=== PATIENT | male | born 1995 | race Caucasian/White ===

== ENCOUNTER 2016-11-01 19:44 | Emergency (ER) | payer OTHER ==
[2016-11-01] MEDS ORDERED: diphenhydrAMINE 25 MG CAP As Ordered ONE (20:52)
[2016-11-01] MEDS ORDERED: methylPREDNISolone INJ 125 MG/2 ML VIAL (J2930) As Ordered ONE (20:53)
--- NOTE | 2016-11-01 21:38 | EDDOCDS ---
Physician Documentation [facility] Name: Tereso Christianson Age: 21 yrs Sex: Male : 1995 Arrival Date: 11/01/2016 Time: 19:44 Bed TR7 Private MD: NO PRIMARY PHYSICIAN, . Disposition: 11/01/16 21:17 Discharged to Home/Self Care. Impression: Acute pharyngitis, unspecified, Cough. - Condition is Stable. - Discharge Instructions: Pharyngitis, Cough, Adult, [id number]. - Medication Reconciliation, Local Pharmacy Hours form. - [facility]; When: Call to arrange an appointment; Reason: Further diagnostic work-up, Recheck today's complaints, Continuance of care. - Problem is new. - Symptoms are resolved. Historical: - Allergies: no known allergies; - Home Meds: 1. none - PMHx: none; - PSHx: none; - Social history: Smoking status: Patient states was never smoker of tobacco. No barriers to communication noted. - Family history: Not pertinent. - : The pt / caregiver states he / she is not on anticoagulants. Home medication list is obtained from the patient. - Exposure Risk Screening:: None identified. Vital Signs: 11/01 19:45 BP 135 / 96; Pulse 88; Resp 20 S; Temp 97.1(O); Pulse Ox 100% on R/A; Weight 74.84 kg / gr2 164.99 lbs (R); Height 5 ft. 10 in. (177.80 cm) (R); Pain 4/10; 21:20 BP 130 / 78; Pulse 80; Resp 20; Temp 97.1(O); Pulse Ox 100% on R/A; Pain 4/10; ar3 19:45 Body Mass Index 23.67 (74.84 kg, 177.80 cm) gr2 MDM: 20:36 Obtain sample by nasopharyngeal swab ordered. btw 20:36 Strep Screen, Nursing ordered. btw 20:36 diphenhydrAMINE 50 mg PO once ordered. btw 20:37 -Influenza A&B Rapid Antigen - Nose Ordered. EDMS 20:39 methylPREDNISolone Sodium Succinate 125 mg IM once ordered. btw 20:48 GATS (NEGATIVE STREP SCREEN) Ordered. EDMS 21:12 -Influenza A&B Rapid Antigen - Nose Reviewed. btw 21:35 [facility] Payment Agreement was scanned into [employer] and attached to record. yoni 21:36 Financial registration complete. gjbethel Administered Medications: 20:39 CANCELLED (Other Intervention Used): Solu-MEDROL 125 mg IVP once btw 21:05 Drug: diphenhydrAMINE 50 mg [diphenhydramine 25 mg capsule (2 caps)] Route: PO; [facility] 21:05 Drug: methylPREDNISolone Sodium Succinate 125 mg Route: IM; Site: right gluteus; [facility] Signatures: Dispatcher [employer] EDIsaac Marrufo PA PA btw Malika Rascon RN RN [facility] Mimi Terrazas The chart was reviewed and I authenticate all verbal orders and agree with the evaluation and treatment provided.Corrections: (The following items were deleted from the chart) 20:39 20:36 Solu-MEDROL 125 mg IVP once ordered. btw btw Attachments: 21:35 [facility] Payment Agreement [facility] MTDD
--- NOTE | 2016-11-01 21:38 | EDDOCDS ---
Nurse's Notes [facility] Name: Tereso Christianson Age: 21 yrs Sex: Male : 1995 Arrival Date: 11/01/2016 Time: 19:44 Bed TR7 Private MD: NO PRIMARY PHYSICIAN, . Diagnosis: Acute pharyngitis, unspecified;Cough Presentation: 11/01 19:53 Presenting complaint: Patient states: throat swelled up bad about 15 minutes ago, was [facility] eating when this happened, mom thinks he got a piece of hamburger caught in throat. Adult Sepsis Screening: The patient does not have new or worsening altered mentation. Systolic blood pressure is greater than 100. Patient has a qSOFA score of 0- Negative Sepsis Screen. Adult Sepsis Screening: Patient has a respiratory rate of greater than or equal to 22 (1 point). Suicide/Homicide risk assessment- the patient denies having any suicidal and/or homicidal ideations and does not present with any other emotional, behavioral or mental health complaints. Status: Patient is not a utility service worker or dependent. Transition of care: patient was not received from another setting of care. 19:53 Acuity: ALISHA Level 3 [facility] 19:53 Method Of Arrival: Walkin/Carried/Asstd [facility] Triage Assessment: 19:57 General: Appears uncomfortable, Behavior is anxious, cooperative. Pain: Location: neck [facility] Pain currently is 6 out of 10 on a pain scale. HIV screening NA for this visit Offered previously. Respiratory: Onset: The symptoms/episode began/occurred suddenly, Breath sounds are clear bilaterally. Derm: Skin is pink, warm & dry. Historical: - Allergies: no known allergies; - Home Meds: 1. none - PMHx: none; - PSHx: none; - Social history: Smoking status: Patient states was never smoker of tobacco. No barriers to communication noted. - Family history: Not pertinent. - : The pt / caregiver states he / she is not on anticoagulants. Home medication list is obtained from the patient. - Exposure Risk Screening:: None identified. Screenin:33 Screening information is obtained from the patient. Fall risk: No risks identified. [facility] Assistance ADL's: requires no assistance with activities of daily living. Abuse/DV Screen: The patient / caregiver reports he/she is: not in a situation that causes fear, pain or injury. Nutritional screening: No deficits noted. Advance Directives: There is no active DNR order. home support is adequate. Assessment: 21:33 General: Appears in no apparent distress, comfortable, Behavior is appropriate for age, [facility] cooperative, states throat feels much better since injections, reviewed discharge instructions with patient and mother who deny further needs and decline offer of additional assistance. Pain: Location: neck Pain currently is 2 out of 10 on a pain scale. Cardiovascular: Chest pain is denied. Respiratory: Airway is patent Respiratory effort is even, unlabored, Respiratory pattern is regular, symmetrical. Derm: Skin is pink, warm & dry. Vital Signs: 19:45 BP 135 / 96; Pulse 88; Resp 20 S; Temp 97.1(O); Pulse Ox 100% on R/A; Weight 74.84 kg gr2 (R); Height 5 ft. 10 in. (177.80 cm) (R); Pain 4/10; 21:20 BP 130 / 78; Pulse 80; Resp 20; Temp 97.1(O); Pulse Ox 100% on R/A; Pain 4/10; ar3 19:45 Body Mass Index 23.67 (74.84 kg, 177.80 cm) gr2 Vitals: 19:45 Log In Time: November 01, 2016 at 19:45. gr2 ED Course: 19:45 Patient visited by Greta Anders. gr2 19:45 NO PRIMARY PHYSICIAN, . is Private Physician. gr2 19:45 Patient moved to Waiting gr2 19:51 Patient visited by Greta Anders. gr2 19:51 Patient moved to Pre RCE gr2 19:56 Triage Initiated cjh 20:15 Malika Rascon,RN is Primary Nurse. ar3 20:15 Patient moved to Triage 1 ar3 20:24 Isaac Howard PA is PHCP. btw 20:25 Abdoulaye Cunha DO is Attending Physician. btw 20:25 Patient visited by Isaac Howard PA. btw 20:38 -Influenza A&B Rapid Antigen - Nose Sent. ar3 20:51 GATS (NEGATIVE STREP SCREEN) Sent. [facility] 21:16 [facility] is Referral Physician. btw 21:22 Patient visited by Bhargavi Judd PCA. ar3 21:32 Patient moved to TR7 ar3 21:33 The patient / caregiver is instructed regarding the plan of care and ED course. [facility] 21:33 No IV's were initiated during this patient's visit. No procedures done that require [facility] assistance. 21:35 [facility] Payment Agreement was scanned into [employer] and attached to record. gjb Administered Medications: 20:39 CANCELLED (Other Intervention Used): Solu-MEDROL 125 mg IVP once btw 21:05 Drug: diphenhydrAMINE 50 mg [diphenhydramine 25 mg capsule (2 caps)] Route: PO; [facility] 21:05 Drug: methylPREDNISolone Sodium Succinate 125 mg Route: IM; Site: right gluteus; [facility] Order Results: Lab Order: -Influenza A&B Rapid Antigen - Nose; SPEC'M 11/01/16 20:38 Test: INFLUENZA A RAPID SCR by ICA; Value: INFLUENZA A RESULTS NEGATIVE; Status: F Test: INFLUENZA A RAPID SCR by ICA; Value: Comments:; Status: F Test: INFLUENZA B RAPID SCR by ICA; Value: INFLUENZA B RESULTS NEGATIVE; Status: F Test Note: ; The Influenza test is a direct rapid immunoassay for the qualitative detection of Influenza viral antigen. Cell culture (Viral Culture) testing should be considered to confirm NEGATIVE results and to assist in detecting other viruses that can provide similar clinical symptoms. Please contact the lab within 24 hours ([phone]) if confirmatory testing is desired. Outcome: 21:17 Discharge ordered by Provider. btw 21:33 Discharge Assessment: Patient awake, alert and oriented x 3. No cognitive and/or [facility] functional deficits noted. Patient verbalized understanding of disposition instructions. patient administered narcotics - no. The following High Risk Discharge criteria are identified: None. Discharged to home ambulatory, with parent. Condition: good Condition: stable Condition: improved. Discharge instructions given to patient, parents Instructed on discharge instructions, follow up and referral plans. Demonstrated understanding of instructions, medications, Pt was receptive of discharge instructions/ teaching. No special radiology studies were completed. Property :Personal belongings accompany Pt. 21:37 Patient left the ED. [facility] Signatures: Bhargavi Judd, BRAXTON ASSEMBLY MANAGER ar3 Isaac Howard PA PA btw Malika Rascon RN RN [facility] Greta Anders gr2 Terrazas, Mimi gjb MTDD
--- NOTE | 2016-11-03 22:38 | EDDOCDS ---
Physician Documentation [facility] Name: Tereso Christianson Age: 21 yrs Sex: Male : 1995 Arrival Date: 11/01/2016 Time: 19:44 Bed TR7 Private MD: NO PRIMARY PHYSICIAN, . Disposition: 11/01/16 21:17 Discharged to Home/Self Care. Impression: Acute pharyngitis, unspecified, Cough. - Condition is Stable. - Discharge Instructions: Pharyngitis, Cough, Adult, [id number]. - Medication Reconciliation, Local Pharmacy Hours form. - Follow up: [facility]; When: Call to arrange an appointment; Reason: Further diagnostic work-up, Recheck today's complaints, Continuance of care. - Problem is new. - Symptoms are resolved. Historical: - Allergies: no known allergies; - Home Meds: 1. none - PMHx: none; - PSHx: none; - Social history: Smoking status: Patient states was never smoker of tobacco. No barriers to communication noted. - Family history: Not pertinent. - : The pt / caregiver states he / she is not on anticoagulants. Home medication list is obtained from the patient. - Exposure Risk Screening:: None identified. Vital Signs: 11/01 19:45 BP 135 / 96; Pulse 88; Resp 20 S; Temp 97.1(O); Pulse Ox 100% on R/A; Weight 74.84 kg / gr2 164.99 lbs (R); Height 5 ft. 10 in. (177.80 cm) (R); Pain 4/10; 21:20 BP 130 / 78; Pulse 80; Resp 20; Temp 97.1(O); Pulse Ox 100% on R/A; Pain 4/10; ar3 19:45 Body Mass Index 23.67 (74.84 kg, 177.80 cm) gr2 MDM: 20:36 Obtain sample by nasopharyngeal swab ordered. btw 20:36 Strep Screen, Nursing ordered. btw 20:36 diphenhydrAMINE 50 mg PO once ordered. btw 20:37 -Influenza A&B Rapid Antigen - Nose Ordered. EDMS 20:39 methylPREDNISolone Sodium Succinate 125 mg IM once ordered. btw 20:48 GATS (NEGATIVE STREP SCREEN) Ordered. EDMS 21:12 -Influenza A&B Rapid Antigen - Nose Reviewed. btw 21:35 [facility] Payment Agreement was scanned into [employer] and attached to record. [facility] 21:36 Financial registration complete. [facility] 11/02 09:31 T-Sheet-- Draft Copy was scanned into [employer] and attached to record. gb Administered Medications: 11/01 20:39 CANCELLED (Other Intervention Used): Solu-MEDROL 125 mg IVP once btw 21:05 Drug: diphenhydrAMINE 50 mg [diphenhydramine 25 mg capsule (2 caps)] Route: PO; [facility] 21:05 Drug: methylPREDNISolone Sodium Succinate 125 mg Route: IM; Site: right gluteus; [facility] Signatures: Dispatcher [employer] EDAdina Wilkinson, Isaac Alexander PA PA btw Malika RasconRN RN [facility] Mimi Terrazas The chart was reviewed and I authenticate all verbal orders and agree with the evaluation and treatment provided.Corrections: (The following items were deleted from the chart) 20:39 20:36 Solu-MEDROL 125 mg IVP once ordered. btw w Attachments: 21:35 [facility] Payment Agreement [facility] 11/02 09:31 T-Sheet-- Draft Copy Chart Complete MTDD
--- NOTE | 2016-11-03 22:38 | EDDOCDS ---
Nurse's Notes [facility] Name: Tereso Christianson Age: 21 yrs Sex: Male : 1995 Arrival Date: 11/01/2016 Time: 19:44 Bed TR7 Private MD: NO PRIMARY PHYSICIAN, . Diagnosis: Acute pharyngitis, unspecified;Cough Presentation: 11/01 19:53 Presenting complaint: Patient states: throat swelled up bad about 15 minutes ago, was [facility] eating when this happened, mom thinks he got a piece of hamburger caught in throat. Adult Sepsis Screening: The patient does not have new or worsening altered mentation. Systolic blood pressure is greater than 100. Patient has a qSOFA score of 0- Negative Sepsis Screen. Adult Sepsis Screening: Patient has a respiratory rate of greater than or equal to 22 (1 point). Suicide/Homicide risk assessment- the patient denies having any suicidal and/or homicidal ideations and does not present with any other emotional, behavioral or mental health complaints. Status: Patient is not a expediter service order or dependent. Transition of care: patient was not received from another setting of care. 19:53 Acuity: ALISHA Level 3 [facility] 19:53 Method Of Arrival: Walkin/Carried/Asstd [facility] Triage Assessment: 19:57 General: Appears uncomfortable, Behavior is anxious, cooperative. Pain: Location: neck [facility] Pain currently is 6 out of 10 on a pain scale. HIV screening NA for this visit Offered previously. Respiratory: Onset: The symptoms/episode began/occurred suddenly, Breath sounds are clear bilaterally. Derm: Skin is pink, warm & dry. Historical: - Allergies: no known allergies; - Home Meds: 1. none - PMHx: none; - PSHx: none; - Social history: Smoking status: Patient states was never smoker of tobacco. No barriers to communication noted. - Family history: Not pertinent. - : The pt / caregiver states he / she is not on anticoagulants. Home medication list is obtained from the patient. - Exposure Risk Screening:: None identified. Screenin:33 Screening information is obtained from the patient. Fall risk: No risks identified. [facility] Assistance ADL's: requires no assistance with activities of daily living. Abuse/DV Screen: The patient / caregiver reports he/she is: not in a situation that causes fear, pain or injury. Nutritional screening: No deficits noted. Advance Directives: There is no active DNR order. home support is adequate. Assessment: 21:33 General: Appears in no apparent distress, comfortable, Behavior is appropriate for age, [facility] cooperative, states throat feels much better since injections, reviewed discharge instructions with patient and mother who deny further needs and decline offer of additional assistance. Pain: Location: neck Pain currently is 2 out of 10 on a pain scale. Cardiovascular: Chest pain is denied. Respiratory: Airway is patent Respiratory effort is even, unlabored, Respiratory pattern is regular, symmetrical. Derm: Skin is pink, warm & dry. Vital Signs: 19:45 BP 135 / 96; Pulse 88; Resp 20 S; Temp 97.1(O); Pulse Ox 100% on R/A; Weight 74.84 kg gr2 (R); Height 5 ft. 10 in. (177.80 cm) (R); Pain 4/10; 21:20 BP 130 / 78; Pulse 80; Resp 20; Temp 97.1(O); Pulse Ox 100% on R/A; Pain 4/10; ar3 19:45 Body Mass Index 23.67 (74.84 kg, 177.80 cm) gr2 Vitals: 19:45 Log In Time: November 01, 2016 at 19:45. gr2 ED Course: 19:45 Patient visited by Greta Anders. gr2 19:45 NO PRIMARY PHYSICIAN, . is Private Physician. gr2 19:45 Patient moved to Waiting gr2 19:51 Patient visited by Greta Anders. gr2 19:51 Patient moved to Pre RCE gr2 19:56 Triage Initiated cjh 20:15 Malika Rascon,RN is Primary Nurse. ar3 20:15 Patient moved to Triage 1 ar3 20:24 Isaac Howard PA is PHCP. btw 20:25 Abdoulaye Cunha DO is Attending Physician. btw 20:25 Patient visited by Isaac Howard PA. btw 20:38 -Influenza A&B Rapid Antigen - Nose Sent. ar3 20:51 GATS (NEGATIVE STREP SCREEN) Sent. [facility] 21:16 [facility] is Referral Physician. btw 21:22 Patient visited by Bhargavi Judd PCA. ar3 21:32 Patient moved to TR7 ar3 21:33 The patient / caregiver is instructed regarding the plan of care and ED course. [facility] 21:33 No IV's were initiated during this patient's visit. No procedures done that require [facility] assistance. 21:35 [facility] Payment Agreement was scanned into [employer] and attached to record. gjb 11/02 09:31 T-Sheet-- Draft Copy was scanned into [employer] and attached to record. gb Administered Medications: 11/01 20:39 CANCELLED (Other Intervention Used): Solu-MEDROL 125 mg IVP once btw 21:05 Drug: diphenhydrAMINE 50 mg [diphenhydramine 25 mg capsule (2 caps)] Route: PO; [facility] 21:05 Drug: methylPREDNISolone Sodium Succinate 125 mg Route: IM; Site: right gluteus; [facility] Order Results: Lab Order: -Influenza A&B Rapid Antigen - Nose; SPEC'M 11/01/16 20:38 Test: INFLUENZA A RAPID SCR by ICA; Value: INFLUENZA A RESULTS NEGATIVE; Status: F Test: INFLUENZA A RAPID SCR by ICA; Value: Comments:; Status: F Test: INFLUENZA B RAPID SCR by ICA; Value: INFLUENZA B RESULTS NEGATIVE; Status: F Test Note: ; The Influenza test is a direct rapid immunoassay for the qualitative detection of Influenza viral antigen. Cell culture (Viral Culture) testing should be considered to confirm NEGATIVE results and to assist in detecting other viruses that can provide similar clinical symptoms. Please contact the lab within 24 hours ([phone]) if confirmatory testing is desired. Lab Order: GATS (NEGATIVE STREP SCREEN); SPEC'M 11/01/16 20:38 Test: GATS CULTURE (NEG STREP SCR); Value: GATS RESULT NEGATIVE FOR STREP PYOGENES (GROUP A); Status: F Test: GATS CULTURE (NEG STREP SCR); Value: <EXTERNAL COMMENT eCWMed> FULL REPORT IN LAB NOTES (eCW and Medent).; Status: F Outcome: 21:17 Discharge ordered by Provider. btw 21:33 Discharge Assessment: Patient awake, alert and oriented x 3. No cognitive and/or [facility] functional deficits noted. Patient verbalized understanding of disposition instructions. patient administered narcotics - no. The following High Risk Discharge criteria are identified: None. Discharged to home ambulatory, with parent. Condition: good Condition: stable Condition: improved. Discharge instructions given to patient, parents Instructed on discharge instructions, follow up and referral plans. Demonstrated understanding of instructions, medications, Pt was receptive of discharge instructions/ teaching. No special radiology studies were completed. Property :Personal belongings accompany Pt. 21:37 Patient left the ED. [facility] Signatures: Adina Blue, Reg Reg gb Dutch, Bhargavi, CEMENTING BULK MATERIAL OPERATOR CEMENTING BULK MATERIAL OPERATOR ar3 Isaac Howard PA PA btw Hafner, Jane, RN RN [facility] Greta Anders gr2 Mimi Terrazas Chart Complete MTDD
--- NOTE | 2016-11-03 22:39 | EDDOCDS ---
Physician Documentation [facility] Name: Tereso Christianson Age: 21 yrs Sex: Male : 1995 Arrival Date: 11/01/2016 Time: 19:44 Bed TR7 Private MD: NO PRIMARY PHYSICIAN, . Disposition: 11/01/16 21:17 Discharged to Home/Self Care. Impression: Acute pharyngitis, unspecified, Cough. - Condition is Stable. - Discharge Instructions: Pharyngitis, Cough, Adult, [id number]. - Medication Reconciliation, Local Pharmacy Hours form. - Follow up: [facility]; When: Call to arrange an appointment; Reason: Further diagnostic work-up, Recheck today's complaints, Continuance of care. - Problem is new. - Symptoms are resolved. Historical: - Allergies: no known allergies; - Home Meds: 1. none - PMHx: none; - PSHx: none; - Social history: Smoking status: Patient states was never smoker of tobacco. No barriers to communication noted. - Family history: Not pertinent. - : The pt / caregiver states he / she is not on anticoagulants. Home medication list is obtained from the patient. - Exposure Risk Screening:: None identified. Vital Signs: 11/01 19:45 BP 135 / 96; Pulse 88; Resp 20 S; Temp 97.1(O); Pulse Ox 100% on R/A; Weight 74.84 kg / gr2 164.99 lbs (R); Height 5 ft. 10 in. (177.80 cm) (R); Pain 4/10; 21:20 BP 130 / 78; Pulse 80; Resp 20; Temp 97.1(O); Pulse Ox 100% on R/A; Pain 4/10; ar3 19:45 Body Mass Index 23.67 (74.84 kg, 177.80 cm) gr2 MDM: 20:36 Obtain sample by nasopharyngeal swab ordered. btw 20:36 Strep Screen, Nursing ordered. btw 20:36 diphenhydrAMINE 50 mg PO once ordered. btw 20:37 -Influenza A&B Rapid Antigen - Nose Ordered. EDMS 20:39 methylPREDNISolone Sodium Succinate 125 mg IM once ordered. btw 20:48 GATS (NEGATIVE STREP SCREEN) Ordered. EDMS 21:12 -Influenza A&B Rapid Antigen - Nose Reviewed. btw 21:35 [facility] Payment Agreement was scanned into [employer] and attached to record. [facility] 21:36 Financial registration complete. [facility] 11/02 09:31 T-Sheet-- Draft Copy was scanned into [employer] and attached to record. gb Administered Medications: 11/01 20:39 CANCELLED (Other Intervention Used): Solu-MEDROL 125 mg IVP once btw 21:05 Drug: diphenhydrAMINE 50 mg [diphenhydramine 25 mg capsule (2 caps)] Route: PO; [facility] 21:05 Drug: methylPREDNISolone Sodium Succinate 125 mg Route: IM; Site: right gluteus; [facility] Signatures: Dispatcher [employer] EDAdina Wilkinson, Isaac Alexander PA PA btw Malika RasconRN RN [facility] Mimi Terrazas The chart was reviewed and I authenticate all verbal orders and agree with the evaluation and treatment provided.Corrections: (The following items were deleted from the chart) 20:39 20:36 Solu-MEDROL 125 mg IVP once ordered. btw w Attachments: 21:35 [facility] Payment Agreement [facility] 11/02 09:31 T-Sheet-- Draft Copy Chart Complete MTDD
== END 2016-11-01 21:37 | disposition home or self-care (01) ==
LOC: M ED 19:44
DX: J02.9 Acute pharyngitis, unspecified (principal); R05 Cough; F17.210 Nicotine dependence, cigarettes, uncomplicated
CPT/HCPCS: 87804; 96372; 99283; J2930

== ENCOUNTER 2017-11-14 13:47 | Emergency (ER) | payer OTHER ==
[2017-11-14 17:16] LABS: BASO # 0.1 10^3/uL (0.0-0.2); BASO % 0.5 % (0.0-1.0); EOS # 0.2 10^3/uL (0.0-0.50); EOS % 1.5 % (0.0-3.0); HEMATOCRIT 43.3 % (42.0-52.0); HEMOGLOBIN 15.2 g/dl (14.0-18.0); IMMATURE GRANULOCYTE % 0.7 % (0-3.0); LYMPH # 3.6 10^3/uL (1.5-6.5); LYMPH % 28.7 % (24.0-44.0); MEAN CORPUSCULAR HEMOGLOBIN 31.3 pg (27.0-33.0); MEAN CORPUSCULAR HGB CONC 35.1 g/dl (32.0-36.5); MEAN CORPUSCULAR VOLUME 89.1 fl (80.0-96.0); MONO # 1.1 10^3/uL (0.0-0.8); MONO % 8.9 % (0.0-5.0); NEUTROPHILS # 7.5 10^3/uL (1.8-7.7); NEUTROPHILS % 59.7 % (36.0-66.0); PLATELET COUNT, AUTOMATED 269 10^3/uL (150-450); RED BLOOD COUNT 4.86 10^6/uL (4.30-6.10); RED CELL DISTRIBUTION WIDTH 12.2 % (11.5-14.5); WHITE BLOOD COUNT 12.6 10^3/uL (4.0-10.0)
[2017-11-14 17:31] LABS: ALBUMIN 4.2 GM/DL (3.2-5.2); ALBUMIN/GLOBULIN RATIO 1.11 (1.00-1.93); ALKALINE PHOSPHATASE 87 U/L (45-117); ALT/SGPT 22 U/L (12-78); ANION GAP 7 MEQ/L (8-16); AST/SGOT 19 U/L (7-37); BILIRUBIN,TOTAL 0.4 MG/DL (0.2-1.0); BLOOD UREA NITROGEN 23 MG/DL (7-18); CALCIUM LEVEL 9.6 MG/DL (8.5-10.1); CARBON DIOXIDE LEVEL 29 MEQ/L (21-32); CHLORIDE LEVEL 103 MEQ/L (98-107); GLOMERULAR FILTRATION RATE > 60.0 (>60); GLUCOSE, FASTING 87 MG/DL (70-100); POTASSIUM SERUM 3.9 MEQ/L (3.5-5.1); SODIUM LEVEL 139 MEQ/L (136-145)
[2017-11-14] MEDS ORDERED: ISOVUE-370 76% 100ML VIAL (Q9967) As Ordered (17:40)
[2017-11-14] MEDS: NS 1,000 ML IV (17:42)
== END 2017-11-14 19:10 | disposition home or self-care (01) ==
LOC: M ED 13:47
DX: L05.91 Pilonidal cyst without abscess (principal)
CPT/HCPCS: Q9967

== ENCOUNTER → 2018-05-11 | Outpatient (CLI) | payer OTHER | LOC: M WUC 14:57 | DX: M51.37 Other intervertebral disc degeneration, lumbosacral region (principal) | CPT/HCPCS: 72110 ==

== ENCOUNTER 2019-11-19 20:48 | Emergency (ER) | payer OTHER ==
[~2019-11-19] VITALS: Ht 177.8 cm; Wt 106.6 kg
[~2019-11-19 20:48] MED LIST: CLEO300C2 PO; TRAM50TA2 PO
[2019-11-19 22:35] VITALS: BP 138/88
== END 2019-11-19 22:36 | disposition home or self-care (01) ==
LOC: M ED 20:48
DX: Z04.6 Encounter for general psychiatric examination, requested by authority (principal); F17.210 Nicotine dependence, cigarettes, uncomplicated

== ENCOUNTER 2024-12-12 10:18 | Emergency (ER) | payer OTHER ==
[~2024-12-12] VITALS: Ht 180.3 cm; Wt 86.4 kg
[2024-12-12] MEDS: BOOSTRIX VACCINE (TETANUS/DIPHTH/ACEL. PERTUSSIS) 0.5ML SYR IM ONE (11:34)
[2024-12-12] MEDS: LIDOCAINE 1% MDV 20ML VIAL SC ONE (11:50)
[2024-12-12 12:30] VITALS: BP 123/69; TEMP 97.5; O2SAT 100
== END 2024-12-12 12:34 | disposition home or self-care (01) ==
LOC: M ED 10:18
DX: S61.011A Laceration without foreign body of right thumb without damage to nail, initial encounter (principal); Y92.9 Unspecified place or not applicable; Y93.9 Activity, unspecified; Y99.0 Civilian activity done for income or pay; Z23 Encounter for immunization